=== PATIENT | male | born 1970 | race Asian ===

== ENCOUNTER 2022-02-19 00:48 | Emergency (ER) | payer MEDICAID, OTHER ==
[~2022-02-19] VITALS: Ht 160 cm; Wt 127.0 kg
[~2022-02-19 00:48] MED LIST: AMLO-257 PO; GLIM2 PO; HYDR25TA2 PO; LISI-894 PO; METF-1211 PO
[2022-02-19] MEDS ORDERED: GABA-1181 PO (00:53)
[2022-02-19] MEDS ORDERED: OMEG10005 PO (00:53)
[2022-02-19] MEDS ORDERED: CHL25 PO (00:53)
[2022-02-19] MEDS ORDERED: ATOR40TA28 PO (00:53)
[2022-02-19] MEDS ORDERED: LIDOCAINE 1% 10 ML VIAL SQ ONE (02:15)
[2022-02-19] MEDS ORDERED: BACITRACIN 0.9 GM PACKET OINTMENT TP ONE (02:15)
[2022-02-19 04:58] VITALS: BP 132/75
== END 2022-02-19 05:13 | disposition home or self-care (01) ==
LOC: EMS 00:49
DX: S01.82XA Laceration with foreign body of other part of head, initial encounter (principal); S61.012A Laceration without foreign body of left thumb without damage to nail, initial encounter; S50.12XA Contusion of left forearm, initial encounter; S13.9XXA Sprain of joints and ligaments of unspecified parts of neck, initial encounter; E11.9 Type 2 diabetes mellitus without complications; I10 Essential (primary) hypertension; Z91.018 Allergy to other foods; Z87.891 Personal history of nicotine dependence; X99.0XXA Assault by sharp glass, initial encounter; Y93.89 Activity, other specified; Y92.89 Other specified places as the place of occurrence of the external cause; Y99.8 Other external cause status
CPT/HCPCS: 99284; 70450; 73090; 73140; 72125; 12013; J3490

== ENCOUNTER 2022-02-24 06:28 | Emergency (ER) | payer SELFPAY ==
[~2022-02-24] VITALS: Ht 170.2 cm; Wt 127.0 kg
[~2022-02-24 06:28] MED LIST changes: +ATOR40TA28 PO; +CHL25 PO; +GABA-1181 PO; -HYDR25TA2 PO; +OMEG10005 PO
[2022-02-24 06:30] VITALS: BP 138/87
== END 2022-02-24 08:53 | disposition home or self-care (01) ==
LOC: EMS 06:29
DX: Z48.02 Encounter for removal of sutures (principal); E11.9 Type 2 diabetes mellitus without complications; I10 Essential (primary) hypertension; Z87.891 Personal history of nicotine dependence; F10.90 Alcohol use, unspecified, uncomplicated; Z91.018 Allergy to other foods
CPT/HCPCS: 99281; Z7502